=== PATIENT | female | born 1960 | race Caucasian/White ===

== ENCOUNTER 2018-12-23 08:02 | Day surgery (SDC) | payer BC ==
[2018-12-22 14:06] VITALS: BMI 30.7
[2018-12-23] VITALS (12 sets, daily range): BP systolic 112–146; BP diastolic 72–91; PULSE 78–90; RESP 10–19; Ht 165.1 cm; Wt 84.6 kg
[~2018-12-23] VITALS: Ht 165.1 cm; Wt 84.6 kg
--- NOTE | 2018-12-23 07:11 | PREOPHP ---
DATE OF ADMISSION: 12/23/2018 HISTORY OF PRESENT ILLNESS: This is a 58-year-old lady, 0. Her last normal menstrual period was in 2016. She was admitted for D and C, hysteroscopy and suction curettage. This patient is not ed to have endometrial thickening and endometrial biopsy was advised for the patient, but the patient refused. She claims that she never had any children and that is very painful to have the biopsy. S he had two D and C's done in 2017 and 2018 for the same problem endometrial thickening but the D and C reports were normal. PAST PERSONAL HISTORY: No history of diabetes, TB, asthma. ALLERGIES: NO ALLERGIES. SOCIAL HISTORY: The patient does not smoke. She does not drink. MEDICATIONS: She does not take any drugs. GYNECOLOGIC HISTORY: She had menarche at the age of 15, every 28 days interval, 3 to 4 days duration , and moderate in amount. FAMILY HISTORY: Mother and grandparents on mother's side had cancer. PAST SURGICAL HISTORY: She had appendectomy. She has breast implants. She has bunion surgery and s he had two D and C's done. REVIEW OF SYSTEMS: CARDIOVASCULAR: No chest pains. RESPIRATORY: No cough. GASTROINTESTINAL: No diarrhea, no vomiting. GENITOURINARY: No dysuria. PHYSICAL EXAMINATION: GENERAL: Reveals a conscious, coherent lady and in no acute distress. VITAL SIGNS: Her blood pressure 120/80, pulse rate 80 per minute, respirations 16 per minute. BREASTS, HEART AND LUNGS: Within normal limits. ABDOMEN: Soft. No organomegaly. PELVIC: Revealed the cervix to be firm, uterus of normal size, and adnexa were negative for masses. RECTAL: Confirmed the pelvic findings. EXTREMITIES: No pedal edema. ADMITTING DIAGNOSES: Endometrial thickening in menopause. PLAN: The patient was planned to have the above procedure D and C, hysteroscopy and suction curettag e. The procedures were explained to the patient and she understood everything totally. The risks, b enefits, and alternatives were discussed with her as well. Dictated By: BARNEY NG/SNEHA Conf#: [id number] DID#: [id number]
[~2018-12-23 08:02] MED LIST: ACETAMINOPHEN 500 MG TAB PO ONE
[2018-12-23] MEDS ORDERED: DIPHENHYDRAMINE 50 MG INJ IV PRN (08:30)
[2018-12-23] MEDS ORDERED: LABETALOL HCL 20MG INJ IV PRN (08:30)
[2018-12-23] MEDS ORDERED: ALBUTEROL 0.083% (NEB) 2.5 MG/3 ML AMP HHN PRN (08:30)
[2018-12-23] MEDS ORDERED: MEPERIDINE 25 MG INJ IV PRN (08:30)
[2018-12-23] MEDS ORDERED: ONDANSETRON 4 MG INJ IV PRN (08:30)
[2018-12-23] MEDS ORDERED: OXYCODONE/ACETAMINOPHEN (5/325) TAB PO PRN ×2 (08:30)
[2018-12-23] MEDS ORDERED: FENTAnyl 50 MCG/ML VIAL IV PRN ×2 (08:30)
[2018-12-23] MEDS ORDERED: morphine (1 MG/ML) 10ML SYRINGE IV PRN ×2 (08:30)
[2018-12-23] MEDS ORDERED: HYDROmorphONE 1 MG/5 ML IV SYRINGE IV PRN ×2 (08:30)
[2018-12-23] MEDS ORDERED: LIDOCAINE 2% (SDV) 5 ML INJ ONE (10:45)
[2018-12-23] MEDS ORDERED: GLYCOPYRROLATE 0.4 MG INJ ONE (10:45)
[2018-12-23] MEDS ORDERED: NEOSTIGMINE 3 MG/3 ML SYRINGE ONE (10:45)
[2018-12-23] MEDS ORDERED: PROPOFOL 40 ML ONE (10:45)
[2018-12-23] MEDS ORDERED: ROCURONIUM 50 MG INJ ONE (10:45)
[2018-12-23] MEDS ORDERED: CEFAZOLIN 1 GM INJ ONE (10:45)
[2018-12-23] MEDS ORDERED: DESFLURANE 15 MIN ONE (10:45)
[2018-12-23] MEDS ORDERED: ONDANSETRON 4 MG INJ ONE (10:46)
[2018-12-23] MEDS ORDERED: FENTAnyl 50 MCG/ML VIAL ONE (10:46)
[2018-12-23] MEDS ORDERED: FAMOTIDINE 20 MG INJ ONE (10:46)
--- NOTE | 2018-12-23 10:48 | PREAC ---
Date/Time of Note Date/Time of Note DATE: 12/23/18 TIME: 10:47 Anesthesia Eval and Record Evaluation Time Pre-Procedure Interview DATE: 12/23/18 TIME: 10:47 Age 58 Sex female NPO: 8 hrs Preoperative diagnosis endometrial thickening Planned procedure D&C Hysteroscopy Past Medical History Past Medical History: Includes GI: GERD, Obesity Surgery & Anesthesia Issues Hx of PONV Meds Anticoagulation: No Beta Ryan within 24 hr: No Reason Beta Ryan not given: Pt. not on B-Ryan No Active Prescriptions or Reported Meds Current Medications Morphine Sulfate (morphine (REC)) 2 mg PACU ORDER PRN IV MILD PAIN 1-3; Start 12/23/18 at 08:30; Stop 12/23/18 at 18:00 Morphine Sulfate (morphine (REC)) 4 mg PACU ORDER PRN IV MOD PAIN 4-6; Start 12/23/18 at 08:30; Stop 12/23/18 at 18:00 Hydromorphone HCl (Dilaudid) 0.2 mg PACU PRN IV MILD PAIN 1-3; Start 12/23/18 at 08:30; Stop 12/23/18 at 18:00 Hydromorphone HCl (Dilaudid) 0.4 mg PACU PRN IV MOD PAIN 4-6; Start 12/23/18 at 08:30; Stop 12/23/18 at 18:00 Hydromorphone HCl (Dilaudid) 0.6 mg PACU PRN IV SEVERE PAIN 7-10; Start 12/23/18 at 08:30; Stop 12/23/18 at 18:00 Fentanyl (Sublimaze) 25 mcg PACU ORDER PRN IV MILD PAIN 1-3; Start 12/23/18 at 08:30; Stop 12/23/18 at 18:00 Fentanyl (Sublimaze) 50 mcg PACU ORDER PRN IV MOD PAIN 4-6; Start 12/23/18 at 08:30; Stop 12/23/18 at 18:00 Oxycodone/ Acetaminophen (Percocet (5/ 325)) 1 tab PACU ORDER PRN PO .PAIN 1-5; Start 12/23/18 at 08:30; Stop 12/23/18 at 18:00 Oxycodone/ Acetaminophen (Percocet (5/ 325)) 2 tab PACU ORDER PRN PO .PAIN 6-10; Start 12/23/18 at 08:30; Stop 12/23/18 at 18:00 Ondansetron HCl (Zofran Inj) 4 mg PACU ORDER PRN IV NAUSEA/VOMITING; Start 12/23/18 at 08:30; Stop 12/23/18 at 18:00 Labetalol HCl (Labetalol) 5 mg PACU ORDER PRN IV HIGH BLOOD PRESSURE; Start 12/23/18 at 08:30; Stop 12/23/18 at 18:00 Albuterol (Proventil 0.083% (Neb)) 2.5 mg PACU ORDER PRN HHN .WHEEZING; Start 12/23/18 at 08:30; Stop 12/23/18 at 18:00 Meperidine HCl (Demerol) 25 mg PACU ORDER PRN IV .RIGORS; Start 12/23/18 at 08:30; Stop 12/23/18 at 18:00 Diphenhydramine HCl (Benadryl) 25 mg PACU ORDER PRN IV .PRURITUS; Start 12/23/18 at 08:30; Stop 12/23/18 at 18:00 Meds reviewed: Yes Allergies Coded Allergies: No Known Allergy (Unverified , 12/23/18) Allergies Reviewed: Yes Labs/Studies Labs Reviewed: Reviewed by anesthesiologist Blood Bank Test 12/22/18 13:21 Antibody Screen NEGATIVE Blood Type A POSITIVE test: Negative Studies: ECG (nsr, nml), CXR (NAD) Pre-procedure Exam Last vitals Vital Signs Date Temp Pulse Resp B/P (MAP) Pulse Ox O2 O2 Flow FiO2 Time Delivery Rate 12/23/18 97.5 85 16 127/86 97 Room Air 09:11 (100) Airway: Adequate mouth opening, Adequate thyromental dist Mallampati: Mallampati II Teeth: Normal Lung: Normal Heart: Normal ASA Physical Status ASA physical status: 2 Emergency: None Planned Anesthetic General/MAC: ETT Pre-operative Attestations Prior to commencing anesthesia and surgery, the patient was re-evaluated, there was verification of: *The patient's identity *The results of appropriate recent lab work and preoperative vital signs *The above evaluation not changing prior to induction *Anesthetic plan, risk benefits, alternative and complications discussed with patient/family; questions answered; patient/family understands, accepts and wishes to proceed. DAVIDA VEGAS December 23, 2018 10:48
--- NOTE | 2018-12-23 11:58 | SIPON ---
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
[2018-12-23] MEDS ORDERED: ACETAMINOPHEN 325 MG TAB PO PRN (12:00)
[2018-12-23] MEDS: HYDROmorphONE 1 MG/5 ML IV SYRINGE IV PRN ×2 (12:04→12:25)
[2018-12-23] MEDS ORDERED: KETOROLAC 15 MG INJ ONE (12:07)
--- NOTE | 2018-12-23 12:07 | PAC ---
Date/Time of Note Date/Time of Note DATE: 12/23/18 TIME: 12:06 Post-Anesthesia Notes Post-Anesthesia Note Last documented vital signs Vital Signs Date Temp Pulse Resp B/P (MAP) Pulse Ox O2 O2 Flow FiO2 Time Delivery Rate 12/23/18 97.5 98 85 89 16 17 127/86 97 99 Room 09:11 120 (100) 146 Air face 0 /96 mask 6L Activity: WNL Respiratory function: WNL Cardiovascular function: WNL Mental status: Baseline Pain reasonably controlled: Yes Hydration appropriate: Yes Nausea/Vomiting absent: Yes DAVIDA VEGAS December 23, 2018 12:07
--- NOTE | 2018-12-23 16:28 | OPR ---
DATE OF OPERATION: 12/23/2018 PREOPERATIVE DIAGNOSES: 1. Endometrial thickening. 2. Rule out endometrial hyperplasia and menopause. POSTOPERATIVE DIAGNOSES: 1. Endometrial thickening. 2. Rule out endometrial hyperplasia and menopause. 3. Pending pathology report. SURGEON: Barney Marquez MD ARBORIST: Anselmo holman. ANESTHESIA: General. OPERATION PERFORMED: Fractional dilatation and curettage and hysteroscopy. OPERATIVE TECHNIQUE: Under general anesthesia, the patient was prepped and draped in the usual fashi on for vaginal surgery. Pelvic exam under anesthesia revealed the cervix to be firm, uterus of barney l size and adnexa were negative for masses. Then, the heavyweight vaginal retractor was put in place and the anterior lip of the cervix was grasped with an Allis clamp. Endocervical dilatation up to H egar 6 was proceeded. The uterus was sounded to about 2-1/2 inches. Then the hysteroscope was inser edmund inside the uterine cavity and connected with the light source. There were no polyps, no fibroids seen. The uterine lining was noted to be very pale looking. Then endocervical curettage was done a nd a small amount of tissue was obtained. Endometrial curettage was done and a small amount of tissu e was obtained. The uterus was intact during and after the procedure. The patient tolerated the pro cedure well. Estimated blood loss was minimal. Vital signs were stable during and after the procedu re. Dictated By: BARNEY NG/SNEHA Conf#: [id number] DID#: [id number]
== END 2018-12-23 14:57 | disposition home or self-care (01) ==
LOC: SDS 08:02
PROVIDERS: ATTEND Obstetrics & Gynecology
DX: R93.89 Abnormal findings on diagnostic imaging of other specified body structures (principal)
CPT/HCPCS: 58558; 86850; 86900; 86901; 88305; J0690; J1170; J1885; J2175; J2405; J2710; J3010; Z7512; Z7610